=== PATIENT | female | born 1955 | race African-American/Black ===

== ENCOUNTER 2017-04-15 03:17 | Emergency (ER) | payer OTHER ==
[~2017-04-15] VITALS: Ht 160 cm; Wt 65.9 kg
[2017-04-15] MEDS ORDERED: MethylPREDNISolone SOD SUCC 125 MG/2 ML VIAL IVP ONE (04:15)
[2017-04-15] MEDS ORDERED: DiphenhydrAMINE HCL 50 MG/ML VIAL IVP ONE (04:15)
[2017-04-15 06:08] VITALS: BP 122/77
== END 2017-04-15 06:14 | disposition home or self-care (01) ==
LOC: EMS 03:18
DX: T78.3XXA Angioneurotic edema, initial encounter (principal); F17.210 Nicotine dependence, cigarettes, uncomplicated
CPT/HCPCS: 96374; 96375; 99284; 99406; J1200; J2930